=== PATIENT | male | born 1950 | race Caucasian/White ===

== ENCOUNTER → 2019-04-07 | Outpatient (CLI) | payer OTHER ==
[~2019-04-07] MED LIST: ALLEGRA180 MG PO; HYDROXYZINE HCL25 M2 PO; KEFLEX500 MG PO; LORTAB 5 MG/5001 TA1 PO; NEXIUM40 MG PO; PHENERGAN25 MG RE; SYNTHROID150 MCG PO; TARKA OR; TUMS PO; VITAMIN D31000 UNI1 PO; [UNRECOGNIZED DRUG - OTHER] OR
== END ==
LOC: HYPER 09:43
DX: S61.501A Unspecified open wound of right wrist, initial encounter (principal); L03.113 Cellulitis of right upper limb; E66.09 Other obesity due to excess calories; E03.9 Hypothyroidism, unspecified; E78.5 Hyperlipidemia, unspecified; I10 Essential (primary) hypertension; K21.9 Gastro-esophageal reflux disease without esophagitis; M18.11 Unilateral primary osteoarthritis of first carpometacarpal joint, right hand; W54.0XXA Bitten by dog, initial encounter; Y93.89 Activity, other specified; Y92.89 Other specified places as the place of occurrence of the external cause; Y99.8 Other external cause status

== ENCOUNTER → 2019-04-25 | Outpatient (CLI) | payer OTHER | LOC: HYPER 10:00 | DX: S61.501D Unspecified open wound of right wrist, subsequent encounter (principal); L03.113 Cellulitis of right upper limb; E66.09 Other obesity due to excess calories; E78.5 Hyperlipidemia, unspecified; E03.9 Hypothyroidism, unspecified; I10 Essential (primary) hypertension; M18.11 Unilateral primary osteoarthritis of first carpometacarpal joint, right hand; M19.90 Unspecified osteoarthritis, unspecified site; K21.9 Gastro-esophageal reflux disease without esophagitis; Z68.29 Body mass index [BMI] 29.0-29.9, adult; W54.0XXD Bitten by dog, subsequent encounter ==

== ENCOUNTER → 2019-05-02 | Outpatient (CLI) | payer OTHER | LOC: HYPER 08:24 | DX: S61.551D Open bite of right wrist, subsequent encounter (principal); M18.11 Unilateral primary osteoarthritis of first carpometacarpal joint, right hand; I10 Essential (primary) hypertension; E78.5 Hyperlipidemia, unspecified; E03.9 Hypothyroidism, unspecified; K21.9 Gastro-esophageal reflux disease without esophagitis; E66.09 Other obesity due to excess calories; Z68.29 Body mass index [BMI] 29.0-29.9, adult; Z79.01 Long term (current) use of anticoagulants; W54.0XXD Bitten by dog, subsequent encounter ==